=== PATIENT | female | born 1955 | race Caucasian/White ===

== ENCOUNTER 2024-04-12 20:54 | Emergency (ER) | payer MEDICARE ==
[2024-04-12] MEDS ORDERED: Lidocaine 1% w/Epinephrine 1:100K 20 ML VIAL ONE (21:00)
[2024-04-12] MEDS ORDERED: Boostrix 0.5 ML (Tdap) VIAL (>/=7 yrs of age) ONE (21:26)
[2024-04-12] MEDS ORDERED: Bacitracin 1 PK ONE (21:26)
== END 2024-04-12 21:55 | disposition home or self-care (01) ==
LOC: MADERS 20:54
DX: S91.311A Laceration without foreign body, right foot, initial encounter (principal); S41.111A Laceration without foreign body of right upper arm, initial encounter; I10 Essential (primary) hypertension; Z79.899 Other long term (current) drug therapy; W26.8XXA Contact with other sharp object(s), not elsewhere classified, initial encounter
CPT/HCPCS: 12004; 90471; 90715